=== PATIENT | female | born 1960 | race Caucasian/White ===

== ENCOUNTER 2019-06-28 17:42 | Emergency (ER) | payer OTHER ==
[2019-06-28 18:07] VITALS: BP 106/42; PULSE 77; TEMP 98.3; BMI 23.6
--- NOTE | 2019-06-28 18:17 | PDOC ---
History of Present Illness - General Stated Complaint: X-RAY Time Seen by Provider: 06/28/19 17:45 - History of Present Illness Initial Comments: 06/28/19 18:19 The patient is a 59 year old female with no reported significant PMHx who presents to the ED c/o L ankle pain. 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 Patient had an x-ray at urgent care that was negative for acute fracture, however as pain persisted she decided to come down to the Emergency Department. Past History - Past Medical History Allergies/Adverse Reactions: Allergies Allergy/AdvReac Type Severity Reaction Status Date / Time No Known Drug Allergies Allergy Verified 06/28/19 18:08 Home Medications: Ambulatory Orders Fish Oil/Borage/Flax/Om3,6,9 1 [[place] 3-6-9 Complex Softgel] 1 each PO DAILY Multivitamin [Multivitamins] 1 each PO DAILY 09/06/13 Aspirin [ASA -] 81 mg PO DAILY 05/11/18 Rosuvastatin [Crestor -] 5 mg PO HS 05/11/18 Anemia: No Asthma: No Cancer: No Cardiac Disorders: No CVA: No COPD: No CHF: No Dementia: No Diabetes: No GI Disorders: No Disorders: No HTN: No Hypercholesterolemia: No Liver Disease: No Seizures: No Thyroid Disease: No - Suicide/Smoking/Psychosocial Hx Smoking History: Never smoked Have you smoked in the past 12 months: No Hx Alcohol Use: No Drug/Substance Use Hx: No Substance Use Type: None Hx Substance Use Treatment: No Review of Systems - Review of Systems Constitutional: No: Chills, Fever Respiratory: No: Cough, Shortness of Breath Cardiac (ROS): No: Chest Pain, Lightheadedness, Palpitations, Syncope ABD/GI: No: Constipated, Diarrhea, Nausea, Vomiting *Physical Exam - Physical Exam Comments: 06/28/19 18:43 Triage VS reviewed Awake, alert, well appearing Extremity: RLE: 2+ DP pulse, R lateral malleolus TTP with edema Integumentary: clean, dry, warm Neuro: A&O x3, CN II-XII intact HEENT: Normal voice, hearing grossly normal ED Treatment Course - RADIOLOGY Radiology Studies Ordered: Category Date Time Status ANKLE & FOOT-LEFT* [RAD] Stat Radiology 06/28/19 17:44 Ordered Medical Decision Making - Medical Decision Making 06/28/19 18:45 59 year old female with c/o L ankle pain following a mechanical fall. VS unremarkable L ankle x-ray negative for acute fracture. Patient discharged w/return precautions, ortho referral. *DC/Admit/Observation/Transfer Diagnosis at time of Disposition: Ankle injury - Discharge Dispostion Disposition: HOME Condition at time of disposition: Good Decision to Admit order: No - Referrals Referrals: Rajesh Yang DO [Staff Physician] - - Patient Instructions Printed Discharge Instructions: DI for Ankle Sprain Additional Instructions: Return to the Emergency Department for any new/worsening/concerning symptoms. - Post Discharge Activity
--- NOTE | 2019-06-28 18:25 | PDOC ---
Attending Attestation - Resident Resident Name: Kiara Ceballos - ED Attending Attestation I have performed the following: I have examined & evaluated the patient, The case was reviewed & discussed with the resident, I agree w/resident's findings & plan, Exceptions are as noted - HPI HPI: 06/28/19 18:23 59 yo female fell 10 days ago and has persistent swelling and pain on her left malleolus - Physicial Exam PE: 06/28/19 18:[address] Ceballos's physical exam - Medical Decision Making 06/28/19 18:25 radiograph no fractures or dislocations seen pt d/c for ortho followup
== END 2019-06-28 18:45 | disposition home or self-care (01) ==
LOC: JERFT 17:42 → JER 17:42 → JERFT 18:45
DX: S99.812D Other specified injuries of left ankle, subsequent encounter (principal); W01.0XXD Fall on same level from slipping, tripping and stumbling without subsequent striking against object, subsequent encounter; Y92.015 Private garage of single-family (private) house as the place of occurrence of the external cause
CPT/HCPCS: 73610-TC-LT-FY; 73630-TC-LT; 99281-25